=== PATIENT | male | born 1965 | race Hispanic/Latino ===

== ENCOUNTER 2017-03-04 13:12 | Emergency (ER) | payer SELFPAY ==
[2017-03-04 13:51] LABS: APPEARANCE,URINE Clear (CLEAR); BILIRUBIN,URINE Negative (NEGATIVE); COLOR,URINE Yellow (YELLOW); GLUCOSE, URINE (UA) Negative (NEGATIVE); KETONES,URINE Trace mg/dL (NEGATIVE); LEUKOCYTE ESTERASE ,URINE Negative (NEGATIVE); NITRATE,URINE Negative (NEGATIVE); OCCULT BLOOD,URINE Negative (NEGATIVE); PH,URINE 8.5 (5.0-8.0); PROTEIN,URINE Negative (NEGATIVE); UROBILINOGEN,URINE 0.2 mg/dL (0.2-1.0)
[2017-03-04 14:09] LABS: BACTERIA,URINE Rare /HPF (None Seen); RBC,URINE 0-1 /HPF (0-1); SQUAMOUS EPITHELIAL CELL,UR Rare /LPF (0-2); WBC,URINE 0-1 /HPF (0-1)
[2017-03-04] MEDS ORDERED: KETOROLAC TROMETHAMINE 30MG/ML ONE (14:45)
[2017-03-04] MEDS ORDERED: ONDANSETRON HCL 4 MG/2 ML VIAL ONE ×2 (14:45→16:20)
[2017-03-04 14:59] LABS: BASOPHILS % (AUTO) 0.4 % (0.0-5.0); EOSINOPHILS % (AUTO) 2.3 % (0.0-8.0); HEMATOCRIT 42.1 % (42-54); LYMPHOCYTES % (AUTO) 17.5 % (21.0-51.0); MEAN CORPUSCULAR HEMOGLOBIN 31.8 pg (27.0-33.0); MEAN CORPUSCULAR HGB CONC 34.8 g/dL (32.0-36.0); MEAN CORPUSCULAR VOLUME 91.4 fL (79-99); MONOCYTES % (AUTO) 7.8 % (3.0-13.0); PLATELET COUNT (AUTO) 215 K/uL (130-400); RED BLOOD CELL COUNT(AUTO) 4.61 MIL/uL (4.50-6.20); RED CELL DISTRIBUTION WIDTH 12.9 % (11.0-15.5); WHITE BLOOD COUNT (AUTO) 14.5 K/uL (4.8-10.8)
[2017-03-04 15:08] LABS: CREATININE 0.8 mg/dL (0.5-1.5); POTASSIUM 3.4 mmol/L (3.5-5.1)
[2017-03-04 15:12] LABS: ALBUMIN 4.2 g/dL (3.5-5.0); BILIRUBIN,TOTAL 0.4 mg/dL (0.2-1.0); TOTAL PROTEIN, SERUM 7.6 g/dL (6.0-8.3)
[2017-03-04] MEDS ORDERED: IOPAMIDOL-370 75 ML VIAL IV ONE (16:17)
[2017-03-04] MEDS ORDERED: MORPHINE SULFATE 2 MG/ML 1ML SYG ONE (16:21)
== END 2017-03-04 18:15 | disposition home or self-care (01) ==
LOC: EDH 13:12
DX: M54.42 Lumbago with sciatica, left side (principal); I10 Essential (primary) hypertension; Z72.0 Tobacco use
CPT/HCPCS: 36415; 71260; 72110; 74177; 80053; 81001; 82150; 83690; 85025; 85651; 86141; 96374; 96375; 96376; 99285; J1885; J2405 ×2; Q9967

== ENCOUNTER 2018-04-27 10:45 | Emergency (ER) | payer SELFPAY | END 2018-04-27 11:28 | disposition home or self-care (01) | LOC: EDH 10:45 | DX: M54.16 Radiculopathy, lumbar region (principal); I10 Essential (primary) hypertension ==

== ENCOUNTER 2021-12-31 18:51 | Emergency (ER) | payer BC ==
[2021-12-31] MEDS ORDERED: 0.9%NACL 1000ML 1,000 ML IV SCH (19:30)
[2021-12-31] MEDS ORDERED: KETOROLAC 30MG VIAL (30MG/ML) IVP ONE (19:30)
[2021-12-31] MEDS ORDERED: ONDANSETRON 4MG INJ IVP ONE (19:30)
[2021-12-31 19:33] LABS: BASOPHILS % (AUTO) 0.7 % (0.0-5.0); EOSINOPHILS % (AUTO) 4.5 % (0.0-8.0); HEMATOCRIT 41.7 % (42-54); LYMPHOCYTES % (AUTO) 25.3 % (21.0-51.0); MEAN CORPUSCULAR HEMOGLOBIN 31.8 pg (27.0-33.0); MEAN CORPUSCULAR VOLUME 90.8 fL (79-99); MONOCYTES % (AUTO) 8.7 % (3.0-13.0); NEUTROPHILS % (AUTO) 60.4 % (40.0-77.0); PLATELET COUNT (AUTO) 228 K/uL (130-400); RED BLOOD CELL COUNT(AUTO) 4.59 MIL/uL (4.50-6.20); RED CELL DISTRIBUTION WIDTH 12.7 % (11.0-15.5); WHITE BLOOD COUNT (AUTO) 9.1 K/uL (4.8-10.8)
[2021-12-31 19:40] LABS: POTASSIUM 3.8 mmol/L (3.5-5.1)
[2021-12-31 19:45] LABS: ALBUMIN 4.2 g/dL (3.5-5.0)
[2021-12-31 20:07] LABS: APPEARANCE,URINE CLEAR (CLEAR); BILIRUBIN,URINE NEGATIVE (NEGATIVE); COLOR,URINE LIGHT-YELLOW (YELLOW); GLUCOSE, URINE (UA) NEGATIVE (NEGATIVE); KETONES,URINE NEGATIVE (NEGATIVE); LEUKOCYTE ESTERASE ,URINE NEGATIVE Leu/uL (NEGATIVE); NITRATE,URINE NEGATIVE (NEGATIVE); OCCULT BLOOD,URINE NEGATIVE (NEGATIVE); PROTEIN,URINE 10 mg/dL (NEGATIVE); UROBILINOGEN,URINE 0.2 mg/dL (0.2-1.0)
[2021-12-31 20:18] LABS: MUCUS,URINE RARE LPF (None Seen); WBC,URINE 0-1 /HPF (0-1)
[2021-12-31] MEDS ORDERED: DICY20TA2 PO (20:37)
[2021-12-31 20:56] VITALS: BP 115/78
== END 2021-12-31 20:59 | disposition home or self-care (01) ==
LOC: EDH 18:51
DX: K57.30 Diverticulosis of large intestine without perforation or abscess without bleeding (principal); K42.9 Umbilical hernia without obstruction or gangrene; E11.9 Type 2 diabetes mellitus without complications
CPT/HCPCS: 99284; 74176; 96374; 96361; 96375; 84484; 80053; 83690; 85025; 81001; 36415; J7030; J2405; J1885

== ENCOUNTER 2023-07-22 18:07 | Emergency (ER) | payer BC ==
[~2023-07-22] VITALS: Ht 160 cm; Wt 72.6 kg
[~2023-07-22 18:07] MED LIST: DICY20TA2 PO
[2023-07-22 18:08] VITALS: BP 126/81; PULSE 105; RESP 18
[2023-07-22 19:32] LABS: RAPID GROUP A STREP negative (NEGATIVE)
[2023-07-22 19:34] LABS: SARS-CoV-2, RNA, NAAT NEGATIVE SARS CoV-2 (NEGATIVE)
[2023-07-22 19:41] LABS: INFLUENZA TYPE A Negative For Type A (NEGATIVE); INFLUENZA TYPE B Negative For Type B (NEGATIVE)
[2023-07-22] MEDS ORDERED: BENZ-39 PO (20:18)
[2023-07-22] MEDS ORDERED: AZIT250T9 PO (20:18)
[2023-07-22] MEDS ORDERED: METH4TAB3 PO (20:18)
[2023-07-22 20:51] LABS: APPEARANCE,URINE CLEAR (CLEAR); BILIRUBIN,URINE NEGATIVE (NEGATIVE); COLOR,URINE LIGHT-YELLOW (YELLOW); GLUCOSE, URINE (UA) NEGATIVE (NEGATIVE); KETONES,URINE NEGATIVE (NEGATIVE); LEUKOCYTE ESTERASE ,URINE NEGATIVE Leu/uL (NEGATIVE); NITRATE,URINE NEGATIVE (NEGATIVE); PH,URINE 7.5 (5.0-8.0); PROTEIN,URINE NEGATIVE (NEGATIVE); UROBILINOGEN,URINE 0.2 mg/dL (0.2-1.0)
[2023-07-22 20:55] LABS: ADD UA MICROSCOPIC YES
[2023-07-22 20:57] LABS: MUCUS,URINE RARE LPF (None Seen); SQUAMOUS EPITHELIAL CELL,UR RARE /HPF (0-2); WBC,URINE 0-1 /HPF (0-1)
== END 2023-07-22 20:37 | disposition home or self-care (01) ==
LOC: EDH 18:07
DX: J98.4 Other disorders of lung (principal); Z20.822 Contact with and (suspected) exposure to COVID-19
CPT/HCPCS: 71045; 81001; 87635; 87804; 87880

== ENCOUNTER 2023-09-28 20:05 | Emergency (ER) | payer BC ==
[~2023-09-28] VITALS: Ht 160 cm; Wt 73.0 kg
[~2023-09-28 20:05] MED LIST changes: +AZIT250T9 PO; +BENZ-39 PO; +METH4TAB3 PO
[2023-09-28] MEDS ORDERED: SENN8.6T20 PO (20:41)
[2023-09-28] MEDS ORDERED: LACT10SO5 PO (20:41)
[2023-09-28 20:48] LABS: BASOPHILS # (AUTO) 0.05 K/uL (0.00-0.20); BASOPHILS % (AUTO) 0.4 % (0.0-5.0); EOSINOPHILS # (AUTO) 0.41 K/uL (0.00-0.70); HEMATOCRIT 39.8 % (42-54); IMMATURE GRANULOCYTE ABSOLUTE 0.05 K/uL (0-1); LYMPHOCYTES % (AUTO) 22.4 % (21.0-51.0); MEAN CORPUSCULAR HEMOGLOBIN 32.5 pg (27.0-33.0); MEAN CORPUSCULAR HGB CONC 34.7 g/dL (32.0-36.0); MEAN CORPUSCULAR VOLUME 93.9 fL (79-99); MONOCYTES # (AUTO) 1.2 K/uL (0.1-1.0); MONOCYTES % (AUTO) 8.6 % (3.0-13.0); NEUTROPHILS # (AUTO) 8.8 K/uL (1.8-7.7); NEUTROPHILS % (AUTO) 65.2 % (40.0-77.0); PLATELET COUNT (AUTO) 193 K/uL (130-400); RED BLOOD CELL COUNT(AUTO) 4.24 MIL/uL (4.50-6.20); RED CELL DISTRIBUTION WIDTH 12.8 % (11.0-15.5); WHITE BLOOD COUNT (AUTO) 13.6 K/uL (4.8-10.8)
[2023-09-28 20:56] LABS: CREATININE 0.8 mg/dL (0.5-1.3); POTASSIUM 3.8 mmol/L (3.5-5.1)
[2023-09-28] MEDS: DICYCLOMINE 20MG (10MG/ML) AMP IM ONE (21:38)
[2023-09-28] MEDS: KETOROLAC 15MG/ML VIAL (15MG/ML) IM ONE (21:39)
[2023-09-28 22:03] VITALS: BP 127/82; PULSE 84; RESP 16; O2SAT 99
[2023-09-28] MEDS: MAGNESIUM CITRATE 296 ML SOLUTION PO ONE (22:27)
== END 2023-09-28 22:34 | disposition home or self-care (01) ==
LOC: EDH 20:05
DX: K59.00 Constipation, unspecified (principal); K57.30 Diverticulosis of large intestine without perforation or abscess without bleeding; Z79.899 Other long term (current) drug therapy
CPT/HCPCS: 99284; 80048; 83690; 85025; 36415; 74018; 96372 ×2; J0500; J1885